=== PATIENT | female | born 1980 | race Caucasian/White ===

== ENCOUNTER 2016-10-12 10:01 | Emergency (ER) | payer MEDICAID ==
[~2016-10-12 10:01] MED LIST: ALBUTEROL 60 PUFFS/8 GM MDI IH SCH; AMOXICILLIN/CLAVULANATE POT 875/125 MG TAB PO SCH
[2016-10-12 10:07] VITALS: TEMP 98.6
--- NOTE | 2016-10-12 10:25 | EDPHY ---
H & P Time Seen by Provider: 10/12/16 10:08 HPI/ROS: CHIEF COMPLAINT: Persisting cough, sore throat, swollen glands HISTORY OF PRESENT ILLNESS: 36-year-old homeless female presents to the emergency department complaining of ongoing persisting cough. The patient was seen in the emergency department September 14, 2016 and was diagnosed with bronchitis. At that time she was treated with albuterol MDI and Zithromax. She states that she took the medication as prescribed. She thought that she was feeling a bit better although she continues to have a productive cough. Denies pain in her chest. She feels mildly short of breath. She complains of sore throat. She denies dysphagia although she describes significant pain with swallowing. She noted swollen glands in her neck which is causing pain and stiffness. She denies a headache. No fevers or chills. No rash. No abdominal pain. REVIEW OF SYSTEMS: Constitutional: No fever, no chills. Eyes: No double or blurry vision. ENT: sore throat. No dysphagia. Respiratory: Persisting cough as above. Short of breath. Cardiac: No chest pain. Gastrointestinal: No abdominal pain, vomiting or diarrhea. Genitourinary: No dysuria. Musculoskeletal: No neck or back pain. Skin: No rashes. Neurological: No headache. Past Medical/Surgical History: Social History: Homeless Smoking Status: Current every day smoker Physical Exam: General Appearance: Alert, no distress. Afebrile. 95% Eyes: Pupils equal and round. Extraocular motions are all intact. ENT: Mouth: Mucous membranes moist. Posterior pharyngeal injection noted with large tonsils. No trismus. No muffled voice. Respiratory: No wheezing, rhonchi, or rales, lungs are clear to auscultation. Cardiovascular: Regular rate and rhythm. Gastrointestinal: Abdomen is soft and nontender, no masses, no rebound or guarding, bowel sounds normal. Neurological: Alert and oriented x 3, cranial nerves II through XII grossly intact Skin: Warm and dry, no rashes. Musculoskeletal: Nontender to palpate along the cervical, thoracic or lumbar spine. Neck is supple. Extremities: Full range of motion and no peripheral edema. Psychiatric: Patient is oriented X 3, there is no agitation. Constitutional: Initial Vital Signs Temperature (C) 37 C 10/12/16 10:02 Heart Rate 98 10/12/16 10:02 Respiratory Rate 16 10/12/16 10:02 Blood Pressure 125/87 H 10/12/16 10:02 O2 Sat (%) 95 10/12/16 10:02 O2 Delivery Mode Room Air Allergies/Adverse Reactions: No Known Allergies Allergy (Unverified 09/14/16 08:14) Home Medications: Medication Instructions Recorded Albuterol [Proventil Inhaler HFA 1 - 2 puffs IH Q4PRN PRN #1 mdi 10/12/16 (*)] Amoxicillin/Clavulanate Pot 875 mg PO BID #20 tab 10/12/16 [Augmentin 875 mg tab] Medical Decision Making ED Course/Re-evaluation: 36-year-old female presents to the emergency department complaining of sore throat, neck pain and persisting cough. Clinically I do not think this patient needs a chest x-ray. She will continue her albuterol inhaler. She does however have large tonsils with posterior pharyngeal injection noted. Patient has anterior cervical lymphadenopathy palpated as well. She has full range of motion of her neck. No nuchal rigidity. I doubt this patient has meningitis. Patient was treated with oral Augmentin. She was given a dose of Decadron in the emergency department as well. She will continue her albuterol inhaler and encouraged to follow up with [facility]. She was told to return if she developed any other change in symptoms or felt worse. Differential Diagnosis: Including but not limited to tonsillitis, strep pharyngitis, mononucleosis, bronchitis, pneumonia, influenza - Data Points Medications Given: Discontinued Medications Dexamethasone (Decadron) 8 mg PO EDNOW ONE Stop: 10/12/16 10:28 Last Admin: 10/12/16 10:31 Dose: 8 mg Departure - Departure Disposition: Home, Routine, Self-Care Clinical Impression: Tonsillitis, Bronchitis Condition: Good Instructions: Ibuprofen (By mouth), Albuterol (By breathing), Amoxicillin/ Clavulanate Potassium (By mouth), Acute Bronchitis (ED), Tonsillitis (ED) Additional Instructions: Albuterol inhaler 2 puffs every 4 hours for one week and then as needed. Augmentin 875mg twice daily for 10 days. You were given a single dose of decadron today in the emergency department. You may take ibuprofen 600 mg every 8 hours as needed for pain. You should follow up at [facility] or [facility], [facility]. Return if you feel short of breath, if he developed fever, or if you feel worse in any way. Referrals: [facility] [Outside] - As per Instructions Prescriptions: Amoxicillin/Clavulanate Pot [Augmentin 875 mg tab] 875 mg PO BID #20 tab Albuterol [Proventil Inhaler HFA (*)] 1 - 2 puffs IH Q4PRN PRN #1 mdi PRN Reason: Short Of Breath/Dyspnea
[2016-10-12] MEDS ORDERED: DEXAMETHASONE 4 MG TAB PO ONE (10:27)
[2016-10-12 10:34] VITALS: BP 127/83; PULSE 78; RESP 18; O2SAT 96
== END 2016-10-12 11:15 | disposition home or self-care (01) ==
DX: J20.9 Acute bronchitis, unspecified (principal); J03.90 Acute tonsillitis, unspecified; F17.200 Nicotine dependence, unspecified, uncomplicated